=== PATIENT | female | born 1985 | race American Indian/Alaskan Native ===

== ENCOUNTER 2016-10-17 10:43 | Outpatient (CLI) | payer OTHER ==
--- NOTE | 2016-10-17 14:05 | RAD ---
CERVICAL SPINE: Four views obtained. HISTORY: Cervicalgia. FINDINGS: The cervical vertebrae maintain normal height and alignment. Disk spaces are preserved. Posterior elements are normally aligned. IMPRESSION: Unremarkable cervical spine. POS: [id number]
== END 2016-10-17 10:44 | disposition home or self-care (01) ==
LOC: MADRAD 10:43
PROVIDERS: ATTEND Family Medicine
DX: M54.2 Cervicalgia (principal)
CPT/HCPCS: 72040

== ENCOUNTER 2016-12-22 20:09 | Emergency (ER) | payer MEDICAID, SELFPAY ==
[2016-12-22] MEDS ORDERED: Ondansetron ODT 4 MG TAB ONE (20:35)
[2016-12-22] MEDS ORDERED: predniSONE 20 MG TAB ONE (20:35)
[2016-12-22] MEDS ORDERED: NEOMYCIN-POLYMYXIN-HC EAR SUSP 200 DROP/10 ML BOT ONE (20:40)
[2016-12-22] MEDS ORDERED: Naproxen 500 MG TAB ONE (20:41)
[2016-12-22] MEDS ORDERED: Cephalexin 500 MG CAP ONE (20:42)
[2016-12-22] MEDS ORDERED: diphenhydrAMINE HCl 50 MG/ML 1 ML VIAL ONE (21:10)
== END 2016-12-22 21:40 | disposition home or self-care (01) ==
LOC: MADERS 20:09
DX: H60.8X2 Other otitis externa, left ear (principal); I10 Essential (primary) hypertension
CPT/HCPCS: 99282; J1200; J2270; J7506; Q0162

== ENCOUNTER 2023-12-16 12:09 | Emergency (ER) | payer BC ==
[2023-12-16] MEDS ORDERED: Orphenadrine Citrate 60 MG/2 ML VIAL ONE (12:29)
[2023-12-16] MEDS ORDERED: Ketorolac Tromethamine 30 MG (1 mL) VIAL ONE (12:29)
[2023-12-16] MEDS ORDERED: Lidocaine 4% Patch ONE (12:30)
[2023-12-16 12:39] LABS: Bilirubin Negative (Negative); Blood, Urine Large (Negative); Clarity Slightly Cloudy (Clear); Glucose, Urine (Dipstick) Negative (Negative); Ketone, Urine Negative (Negative); Leukocyte Negative (Negative); Nitrite Negative (Negative); Protein, Urine (Dipstick) Negative (Neg-Trace); Urobilinogen 0.2 mg/dL (Less than 2)
[2023-12-16 12:45] LABS: Pregnancy Test - Urine (BHCG) Negative (Negative); Pregu Control Background? CLEAR/WHITE (CLR/WHITE); Pregu Control Bar Appear? YES (CONTROL BAR)
[2023-12-16 12:49] LABS: RBC/HPF Greater than 50 HPF (0-3)
[2023-12-16 12:50] LABS: Bacteria/HPF Rare-Few HPF (None Seen); CAUTI Indications for Culture Pelvic or flank pain; Squamous Epithelial 0-3 HPF (0-3); Urine Culture Reflex No No; WBC/HPF 0-3 HPF (0-3)
== END 2023-12-16 12:57 | disposition home or self-care (01) ==
LOC: MADERS 12:09
DX: S39.012A Strain of muscle, fascia and tendon of lower back, initial encounter (principal); M51.36 Other intervertebral disc degeneration, lumbar region; I10 Essential (primary) hypertension; F17.290 Nicotine dependence, other tobacco product, uncomplicated; X58.XXXA Exposure to other specified factors, initial encounter
CPT/HCPCS: 72100; 81001; 81025; 96372; J1885; J2360

== ENCOUNTER 2024-09-08 20:36 | Emergency (ER) | payer BC ==
[2024-09-08] MEDS ORDERED: Ondansetron ODT 4 MG TAB ONE (21:32)
[2024-09-08] MEDS ORDERED: Acetaminophen 500 MG TAB ONE (21:32)
[2024-09-08] MEDS ORDERED: Dexamethasone 10 MG/ML VIAL ONE (21:32)
== END 2024-09-08 23:05 | disposition home or self-care (01) ==
LOC: MADERS 20:36
DX: J11.1 Influenza due to unidentified influenza virus with other respiratory manifestations (principal); I10 Essential (primary) hypertension; F17.290 Nicotine dependence, other tobacco product, uncomplicated
CPT/HCPCS: 87081; 87428; 87430; 96372; 99283; J1100; Q0162